=== PATIENT | female | born 1960 | race Caucasian/White ===

== ENCOUNTER 2020-03-22 15:19 | Inpatient (IN) | payer MEDICARE, MEDICAID ==
[~2020-03-22] VITALS: Ht 152.4 cm; Wt 142.0 kg
[2020-03-22] MEDS ORDERED: ACETAMINOPHEN 500 MG TAB PO ONE (15:45)
[2020-03-22 16:13] LABS: Platelet Count (auto) 247 10^3/uL (140-450)
[2020-03-22 16:15] LABS: Hematocrit 41.8 % (36.0-46.0); Hemoglobin 13.1 g/dL (12.2-16.2); Mean Corpuscular Hemoglobin 25.7 pg (28.0-32.0); Mean Corpuscular Hgb Conc. 31.2 g/dL (32.0-36.0); Mean Corpuscular Volume 82.3 fL (80.0-100.0); Red Blood Cells 5.08 10^6/uL (4.0-5.20); Red Cell Distribution Width 17.5 % (11.8-14.3); White Blood Cell 9.6 10^3/uL (4.4-10.8)
[2020-03-22 16:33] LABS: Albumin 2.9 g/dL (3.4-5.0); Anion Gap 8 (5-15); Blood Urea Nitrogen 5 mg/dL (7-18); Carbon Dioxide 33 mmol/L (21-32); Chloride 97 mmol/L (98-107); Glucose 97 mg/dL (74-106); Sodium 138 mmol/L (136-145)
[2020-03-22 16:38] LABS: Basophils % (manual) 0 (0.0-2.0); Blast Cells 0; Metamyelocytes % 0; Myelocytes % 0; Promyelocytes % 0; Reactive Lymphocytes 0
[2020-03-22 16:39] LABS: Alanine Aminotransferase 22 U/L (13-56); Alkaline Phosphatase 69 U/L (45-117); Aspartate Aminotransferase 31 U/L (15-37); BUN/Creatinine Ratio 7.2; Bilirubin, Total 1.9 mg/dL (0.2-1.0); Calcium 8.1 mg/dL (8.5-10.1); GFR African American 112 mL/min; GFR Non-African American 93 mL/min; Total Protein 6.3 g/dL (6.4-8.2)
[2020-03-22 16:56] LABS: Band Neutrophils % (manual) 4; Eosinophils % (manual) 4 (0-7); Lymphocytes % (manual) 30 (10.0-50.0); Monocytes % (manual) 5 (0-12)
[2020-03-22 16:57] LABS: Potassium 2.7 mmol/L (3.5-5.1)
[2020-03-22] MEDS ORDERED: POTASSIUM EFFERVESENT TAB 25 MEQ PO ONE (18:00)
[2020-03-22] MEDS: POTASSIUM CHL 20MEQ/100ML 100 ML IV SCH ×2 (18:30→20:47)
[2020-03-22] MEDS ORDERED: ALBUTEROL SULF 2.5 MG/0.5ML(0.5%) NEB SOLN NEB ONE (19:15)
[2020-03-22] MEDS ORDERED: IPRATROPIUM BROM 0.5 MG/2.5ML INH SOL NEB ONE (19:15)
[2020-03-22] MEDS: SODIUM CHLORIDE 0.9% 1,000 ML IV SCH (21:11)
[2020-03-22] MEDS ORDERED: SODIUM CHLORIDE 0.9% 1,000 ML IV ONE (21:15)
[2020-03-22] MEDS ORDERED: DOCUSATE SOD 100 MG CAP PO PRN (21:15)
[2020-03-22] MEDS ORDERED: ONDANSETRON HCL 4 MG/2 ML VIAL IV PRN (21:15)
[2020-03-22] MEDS ORDERED: ACETAMINOPHEN 325 MG TAB PO PRN (21:15)
[2020-03-22] MEDS ORDERED: TEMAZEPAM 15 MG CAP PO PRN (21:15)
[2020-03-22] MEDS ORDERED: MORPHINE SULF INJ 2 MG/ML SYRINGE 1ML IV PRN (21:15)
[2020-03-22] MEDS ORDERED: DEXTROSE (50%) 50ML SYRG IV PRN (21:15)
[2020-03-22] MEDS ORDERED: HYDROcodone-ACET 5/325MG TAB PO PRN (21:15)
--- NOTE | 2020-03-22 23:00 | NUR ---
MS admit from ER RORO SEGURA admitted to tele/MS. Patient oriented to NAVIN JOSHI, nay RN, unit, room, bed, and unit policies regarding patient care and visiting hours. Patient weighed by bed scale and encouraged to call if they need something. All questions and concerns addressed, patient verbalized understanding. Note:Patient admitted with finley catheter in place.
[2020-03-22] MEDS: methylPREDNISolone SOD SUCC 125 MG/2 ML VL IV SCH (23:01)
[2020-03-22] MEDS: InsuLIN REG 1unit/0.01ml Soln (100units/ml) SC SCH (23:02)
[2020-03-22] MEDS: ACCU-CHEK COMFORT CURVE STRIP VI SCH (23:03)
[2020-03-22 23:18] VITALS: BP 117/79
[2020-03-23 02:56] LABS: Urine Bacteria FEW /hpf (None Seen); Urine Blood Negative /uL (Negative); Urine Specific Gravity 1.002 (1.001-1.035); Urine WBC 2 /hpf (0 - 5)
[2020-03-23 05:00] VITALS: BP 129/69
[2020-03-23] MEDS: ACCU-CHEK COMFORT CURVE STRIP VI SCH ×4 (06:04→21:31)
[2020-03-23] MEDS: InsuLIN REG 1unit/0.01ml Soln (100units/ml) SC SCH ×5 (06:07→21:37)
--- NOTE | 2020-03-23 06:51 | NUR ---
Patient said she had diarrhea at home and again in ED, patient is asking for medication to stop diarrhea. Called Hospitalist, Dr. Bettencourt said if you see patient having diarrhea to let him know. No new orders at this time. Patient had no episode of diarrhea since coming to floor. Patient questioning blood sugar check and insulin when she is not diabetic, informed patient she is on solumedrol that would affect her blood sugar. Informed patient she can refuse treatment if she does not want it, patient said "do what you have to do".
--- NOTE | 2020-03-23 07:30 | NUR ---
Opening Note Assumed pt care from NOC RN. Pt is a/ox4 with no s/s of distress or SOB. Pt is currently laying in bed with no complaints at this time. Pt is currently on 3L via NC. Discussed POC with pt; pt verbalized understanding. Safety measures maintained with call light within reach, bed in lowest position and side rails up. Will continue to monitor for changes.
[2020-03-23] MEDS: methylPREDNISolone SOD SUCC 125 MG/2 ML VL IV SCH (08:59)
[2020-03-23 09:00] VITALS: BP 106/57
[2020-03-23 10:30] LABS: BUN/Creatinine Ratio 8.2; Calcium 7.5 mg/dL (8.5-10.1); Potassium 3.9 mmol/L (3.5-5.1)
--- NOTE | 2020-03-23 11:19 | NUR ---
Attempted PT eval. Pt refused stating she is too tired. Will attempt again later.
--- NOTE | 2020-03-23 11:52 | NUR ---
Pt Refusing Insulin Pt states "I am not a diabetic, leave me alone". Provided pt with education, pt still refused. Will continue to monitor.
--- NOTE | 2020-03-23 12:29 | NUR ---
Dr Walls at bedside MD to see pt. Discussed POC. Requested that COVID test be done to r/o. also requested that we resume home medications. Will implement.
--- NOTE | 2020-03-23 12:53 | NUR ---
Missing Medications Pt states that while she was in the ED, she had a bag of her current medications. She does not have the bag currently with he, stating "they took it down in the ED". There is no documentation of where said medications are. Called pharmacy, they do not have the said bag. Called ED, tech stated that she does not have a bag, but she would keep an eye out for it. Will continue to attempt to locate. Addendum: 03/23/20 at 1527 by DEDE MORALES RN RN Called back ED. They stated that they would look for the medications. Will continue to attempt to locate. Addendum: 03/23/20 at 1559 by DEDE MORALES RN RN Called [facility]. They have a list of medications from 8 months ago. Will continue to attempt to obtain. Addendum: 03/23/20 at 1609 by DEDE MORALES RN RN Called ED again. Staff stated they have looked, unable to locate medications.
[2020-03-23] MEDS ORDERED: DEXTROSE (50%) 50ML SYRG IV PRN (13:00)
[2020-03-23] MEDS: SODIUM CHLORIDE 0.9% 1,000 ML IV SCH (13:00)
--- NOTE | 2020-03-23 13:14 | NUR ---
COVID Test Specimen taken and walked to lab. Will continue to monitor.
--- NOTE | 2020-03-23 13:34 | NUR ---
UA SENT TO LAB
[2020-03-23 14:34] VITALS: BP 124/75
--- NOTE | 2020-03-23 14:50 | NUR ---
2nd attempt made for PT eval. Pt refusing stating she cannot get up. Pt was educated on importance of getting out of bed. Will attempt again later.
--- NOTE | 2020-03-23 15:02 | NUR ---
Attempted to Obtain Home Medications Called [facility], to which she was discharged from to obtain list of home medications, . Spoke to Jjoo at facility, she stated that because it is the weekend, she does not have access to medical records, therefore cannot provide a list of medications pt was d/c'e with. Staff member further stated that we could call tomorrow in an attempt to obtain list. Will continue to attempt to obtain list. Addendum: 03/23/20 at 1631 by DEDE MORALES RN RN Attempted to call pt's home phone to speak with pt's roommate to obtain list of medications. Attempted number provided [phone], dial tone was reached.
--- NOTE | 2020-03-23 15:07 | NUR ---
Spoke with Pt's Contact, Brother, Rigo Spoke with pt's next of Kin, Rigo, , in an attempt to obtain home medications for pt. Rigo, living in [place], is unaware of pt's current home medications. Will continue to attempt to get home medications.
[2020-03-23] MEDS: ALBUTEROL SULF 2.5 MG/0.5ML(0.5%) NEB SOLN NEB PRN ×2 (15:35→22:29)
[2020-03-23] MEDS: IPRATROPIUM BROM 0.5 MG/2.5ML INH SOL NEB PRN ×2 (15:35→22:29)
[2020-03-23 16:06] LABS: Basophils # (auto) 0 10 ^3/uL (0-0.2); Eosinophils # (auto) 0 10 ^3/uL (0-0.8); Hemoglobin 12.4 g/dL (12.2-16.2); Monocytes # (auto) 0.1 10 ^3/uL (0-1.3)
[2020-03-23 16:09] LABS: Basophils % (auto) 0.1 % (0.0-2.0); Hematocrit 39.6 % (36.0-46.0); Lymphocytes # (auto) 0.7 10 ^3/uL (0.4-5.4); Lymphocytes % (auto) 8.6 % (10.0-50.0); Mean Corpuscular Hemoglobin 26.3 pg (28.0-32.0); Mean Corpuscular Hgb Conc. 31.2 g/dL (32.0-36.0); Mean Corpuscular Volume 84.2 fL (80.0-100.0); Monocytes % (auto) 0.7 % (0.0-12.0); Neutrophils # (auto) 7.3 10 ^3/uL (1.6-8.6); Neutrophils % (auto) 90.6 % (37.0-80.0); Nucleated Red Blood Cells % 0.4 %; Platelet Count (auto) 173 10^3/uL (140-450); Red Cell Distribution Width 17.5 % (11.8-14.3); White Blood Cell 8.1 10^3/uL (4.4-10.8)
[2020-03-23 16:16] LABS: Calcium 7.4 mg/dL (8.5-10.1); Potassium 3.7 mmol/L (3.5-5.1)
[2020-03-23 16:19] LABS: BUN/Creatinine Ratio 7.1
[2020-03-23 17:00] VITALS: BP 111/52
[2020-03-23 17:29] VITALS: BP 111/52
--- NOTE | 2020-03-23 17:55 | NUR ---
Pt C/O Eye Drainage Pt states that she is experiencing some eye drainage to her R eye. Pt states that it has been going on for a couple days and further states that it is due to an "allergic reaction". Provided pt with tissues to wipe eye. At this time, pt's eye shows no abnormalities or redness, mild clear drainage noted to pt's R eye. Will continue to monitor.
--- NOTE | 2020-03-23 21:15 | NUR ---
CALLED ED TO FIND OUT IF PATIENT'S BAG OF MEDICATION WERE FOUND, PER EXCHANGE SPECIALIST, NONE WERE FOUND RIGHT NOW BUT SHE WILL KEEP LOOKING. PATIENT IS WORRIED THAT SHE HAS BEEN MISSING HER MEDICATIONS SINCE WE CANNOT VERIFY HER HOME MEDICATIONS. PATIENT REMEMBERS SHE TAKES PREDNISONE 7.5MG, DESMOPRESSIN 2MG, LEVOTHYROXINE 81MCG, LIPITOR 40MG BUT CANNOT REMEMBER HER HEART MEDICATIONS.
[2020-03-23] MEDS ORDERED: cefTRIAXone 1GM/50ML D5W 50 ML IV ONE (21:21)
[2020-03-23] MEDS: cefTRIAXone 1GM/50ML D5W 50 ML IV SCH (21:23)
[2020-03-23 22:00] VITALS: BP 117/73
[2020-03-23] MEDS ORDERED: FUROSEMIDE 20 MG TAB PO ONE (23:45)
--- NOTE | 2020-03-24 00:22 | NUR ---
NOTIFIED MACHINE HAND, ALISHA REGARDING PATIENT'S MISSING BAG OF MEDICATIONS. PER HOUSE SUP., HE LOOKED ALL OVER DOWN IN THE ED AND THERE WAS NONE FOUND.
--- NOTE | 2020-03-24 00:24 | NUR ---
SPOKE WITH HOSPITALIST REGARDING PATIENT'S HOME MEDICATIONS, NOTIFIED HOSPITALIST REGARDING HOME MEDICATIONS THAT THE PATIENT REMEMBERS. TELEPHONE ORDERS OBTAINED FOR THE FOLLOWING MEDICATIONS THAT THE PATIENT REMEMBERS: LIPITOR 40MG QHS, LEVOTHYROXINE 88MCG PO DAILY, DESMOPRESSIN 0.2MG PO BID, DILTIAZEM 60 MG DAILY (PER PT, SHE TAKES IT TWICE A DAY). LASIX 20 MG PO X 1 WAS ORDERED FOR INCREASING LEG EDEMA. MORNING NURSE WILL NEED TO CALL [facility] TO REQUEST FOR A LIST OF PATIENT'S HOME MEDICATION TO RECONCILE PT'S MEDICATION. WILL ENDORSE TO MORNING RN.
[2020-03-24 05:00] VITALS: BP 115/77
[2020-03-24] MEDS: ACCU-CHEK COMFORT CURVE STRIP VI SCH ×4 (06:10→21:14)
[2020-03-24] MEDS: LEVOTHYROXINE SODIUM 88 MCG TAB PO SCH (06:10)
[2020-03-24] MEDS: InsuLIN REG 1unit/0.01ml Soln (100units/ml) SC SCH ×4 (06:10→21:19)
[2020-03-24] MEDS: SODIUM CHLORIDE 0.9% 1,000 ML IV SCH ×2 (06:11→23:11)
--- NOTE | 2020-03-24 06:40 | NUR ---
SPOKE TO PHARMACIST, DESMOPRESSIN IS ONLY AVAILABLE NASAL SPRAY OR INJECTION IN THE HOSPITAL. PAGED HOSPITALIST TO CHANGE ORDER. WAITING FOR CALL BACK.
--- NOTE | 2020-03-24 07:01 | NUR ---
SPOKE TO DR. PAIGE, TEL ORDER OBTAINED FOR DESMOPRESSIN NASAL SPRAY, 1 SPRAY BID.
--- NOTE | 2020-03-24 07:05 | NUR ---
PT ASSESSED FOR PRN HHN TX. PT IS ON 4LNC, SPO2 98%, HR 100, RR 20. NO S/S OF RESPIRATORY DISTRESS. HHN TX NOT INDICATED AT THIS TIME. WILL CONTINUE TO MONITOR.
--- NOTE | 2020-03-24 07:06 | NUR ---
OPENING SHIFT NOTE Assumed care of patient from shift foreman RN. Patient is alert and oriented x4, patient denies pain, respirations are even and unlabored. Patient is receiving oxygen at 4L via nasal cannula, saturation 93%. Patient was updated on the plan of care and verbalized understanding. Patient began yelling statins "the shift foreman nurse was supposed to give me my heart medications and she was supposed to fix my would dressing". I informed the patient that the shift foreman was no longer here and when her medications were due. Patient was asked to stop yelling. Patient stated "I do not understand why the medications are due at that time that is not when I take them." I educated the patient on hospital policy and that the medications are due then pharmacy has them due and when the doctors order them. Patient continues to state frustration. 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 I want to see my doctor right now." Patient was educated that when the doctors make rounds and that is when she will be able to see the MD. Patient states that she "will not move or do physical therapy until all of her medications are properly ordered." Will attempt to call [facility] to obtain accurate medication reconciliation. Bed is locked, in the lowest position, side rails up x2 and call light is in reach. Patient was encouraged to call for assistance as needed. Charge nurse Lisa informed of patient complaints.
--- NOTE | 2020-03-24 08:40 | NUR ---
DRESSING CHANGE ON LEFT UPPER CHEST WOULD Wound bed is pink, no drainage noted, Patient states that there is an ointment that her home nurse was applying to the wound, there is currently no order for ointment. Optifoam and Medipore tape applied to wound. Patient tolerated well.
[2020-03-24] MEDS ORDERED: dilTIAZem HCL 60 MG TAB PO ONE (10:00)
[2020-03-24] MEDS ORDERED: DESMOPRESSIN ACET 0.01% 5ML NASAL SPRY SCH (10:00)
[2020-03-24] MEDS: cefTRIAXone 1GM/50ML D5W 50 ML IV SCH (10:05)
[2020-03-24] MEDS: predniSONE 5 MG TAB PO SCH (10:06)
[2020-03-24] MEDS: DESMOPRESSIN ACET 0.01% 5ML NASAL SPRY SCH ×2 (10:08→21:13)
--- NOTE | 2020-03-24 10:17 | NUR ---
Attempted PT eval. Pt refused stating she does not want to get up until she received meclizine. Will attempt again later.
--- NOTE | 2020-03-24 11:24 | NUR ---
03/24/20 1124 FYI this patient was previously receiving care from [facility] [phone], fax number [phone].
--- NOTE | 2020-03-24 12:28 | NUR ---
LOZANO AT BEDSIDE Updated on patient status. Plan of care was reviewed with patient , patient verbalized understanding. Per MD patient may be discharged tomorrow.
[2020-03-24 13:00] VITALS: BP 124/70
--- NOTE | 2020-03-24 16:50 | NUR ---
Patient complaining of vertigo Called [facility], updated on patient status, New order for Meclizine 25mg PO TID.
[2020-03-24 17:03] VITALS: BP 114/58
[2020-03-24] MEDS ORDERED: PANT1INJ3 PO (18:28)
[2020-03-24] MEDS ORDERED: ATO40T PO (18:28)
[2020-03-24] MEDS ORDERED: DIL60T PO (18:28)
[2020-03-24] MEDS ORDERED: DESM1SPR (18:28)
[2020-03-24] MEDS ORDERED: ACET-1156 PO (18:28)
[2020-03-24] MEDS ORDERED: PRED2.5T4 PO (18:28)
[2020-03-24] MEDS ORDERED: LEVO150T10 PO (18:28)
[2020-03-24] MEDS ORDERED: DOCU100T15 PO (18:28)
--- NOTE | 2020-03-24 18:29 | NUR ---
MED REC COMPLETED Patient's medication rec faxed from [facility].
[2020-03-24] MEDS: MECLIZINE HCL 25 MG TAB PO SCH (21:13)
[2020-03-24 22:00] VITALS: BP 115/76
[2020-03-24] MEDS ORDERED: ATORVASTATIN 20 MG TAB PO SCH (22:00)
--- NOTE | 2020-03-24 22:39 | NUR ---
Respiratory note: PT SEEN AND ASSESSED FOR PRN MED NEB TX AT 2239. TX IS NOT INDICATED AT THIS, PT DENIES ANY SHORTNESS OF BREATH AT THIS TIME. HR 90 RR 18 SP02 98% ON 4L NASAL CANNULA.
[2020-03-25 05:00] VITALS: BP_SYST 115; BP_SYST 123; BP_DIAS 64; BP_DIAS 70
[2020-03-25] MEDS: InsuLIN REG 1unit/0.01ml Soln (100units/ml) SC SCH ×3 (06:16→17:00)
[2020-03-25] MEDS: MECLIZINE HCL 25 MG TAB PO SCH ×2 (06:16→15:49)
[2020-03-25] MEDS: ACCU-CHEK COMFORT CURVE STRIP VI SCH ×3 (06:17→17:28)
[2020-03-25] MEDS: LEVOTHYROXINE SODIUM 88 MCG TAB PO SCH (06:17)
--- NOTE | 2020-03-25 08:00 | NUR ---
RECEIVED PATIENT ALERT AND ORIENTED X4, NOT IN DISTRESS, CLEAR LUNG SOUNDS IN BILATERAL AND DIMINISHED IN BILATERAL LOWER LUNG LOBES, RR=18 SAT=95%, DEEP BREATHING AND COUGHING ENCOURAGED, VERBALIZED AND DEMONSTRATED WELL, HEART R=74, DENIED SOB AND CHEST PAIN AT THIS MOMENT, ABDOMEN SOFT WITH ACTIVE BS, TOLERATED BREAKFAST TRAY WELL, LAST MB=03/21/20 REPORTED, AMOS CATH IN PLACE AND PATENT, DRAINING CLEAR YELLOW URINE, SKIN INTACT WARM TO TOUCH, RADIAL AND PEDAL PULSES PALPABLE, CAP REFILL <3 SECONDS, RESTING ON BED, DENIED PAIN, HEAD OF BED ELEVATED, BED ON LOW POSITION, RAILS UP X2, CALL LIGHT ON REACH,WILL CONTINUE MONITORING.
--- NOTE | 2020-03-25 08:11 | NUR ---
Respiratory note: HR 90 RR 18 SP02 98% ON 4L NC. NO SIGNS OR SYMPTOMS OF SOB. PRN MED NEB TX NOT INDICATED AT THIS TIME. PT WANTS TO SLEEP.
[2020-03-25 08:57] VITALS: BP 118/67
--- NOTE | 2020-03-25 09:33 | NUR ---
Attempted PT eval. Pt states she does not want to get up until she has her next dose of meclizine. Will attempt again.
--- NOTE | 2020-03-25 09:49 | NUR ---
Assessment Patient is a 60-year-old female who is alert and oriented. Prior to admission patient lived home with her roommate and functioned independently. Patient informed me she has a nebulizer, oxygen, shower chair, walker, bed side commode and a hospital bed. Per patient she will return home to her prior living arrangements post discharge and family will transport her home. Advised patient there is a social service consult for home health safety evaluation and broken hospital bed. Patient informed me her hospital bed broke and she needs a new one stating the company name who provided her with the bed is [employer]. Informed patient I will contact [employer] to have them replace the bed for a new one. Patient informed me she is on service with [facility]. Informed patient clinical information will be faxed to agency. Informed patient she has the right to participate in all discharge planning. Patient verbalized understanding and agreed to discharge plans. Per Melinda with [employer] Ph:( [phone]) they will resume service for patient. Contact [employer], arcelia to Amy regarding broken hospital bed. Per Amy with [employer] they will contact patient to replace broken hospital bed. Addendum: 03/25/20 at 0950 by JESSICA COOPER Amended: Links added.
[2020-03-25] MEDS: DESMOPRESSIN ACET 0.01% 5ML NASAL SPRY SCH (10:00)
--- NOTE | 2020-03-25 10:00 | NUR ---
C/O MEDICATION LOST IN ER, ER AND PHARMACY CONTACTED FOR FOLLOW UP AND UPDATES, ER AND PHARMACY DENIED ANY TRACE OF THE MEDICATIONS, KEY ACCOUNT REPRESENTATIVE RHONDA WAS NOTIFIED, PATIENT WAS UPDATED OF LOST MEDICATION FOLLOW UP, WILL CONTINUE MONITORING.
[2020-03-25] MEDS: cefTRIAXone 1GM/50ML D5W 50 ML IV SCH (10:47)
[2020-03-25] MEDS: predniSONE 5 MG TAB PO SCH (10:48)
--- NOTE | 2020-03-25 12:00 | NUR ---
PENDING D/C, DR. MAURICIO KAN WAS CONTACTED FOR D/C MEDICATION CLARIFICATIONS AND LOST MEDICATION PRESCRIPTION REQUESTED BY THE PATIENT, DR. MARTÍNEZ WILL COME TO COMMUNICATE WITH THE PATIENT REPORTED, WAITING FOR DR. MAURICIO Wayne TO SEE THE PATIENT FOR MORE D/C AND MEDICATION CLARIFICATION.
[2020-03-25 12:38] VITALS: BP 120/56
[2020-03-25] MEDS: SODIUM CHLORIDE 0.9% 1,000 ML IV SCH (15:49)
[2020-03-25 16:02] VITALS: BP 120/60
[2020-03-25 16:58] VITALS: BP 103/63
--- NOTE | 2020-03-25 17:14 | NUR ---
BRIAN Ramirez advised me patient family is unable to transport patient stating she will need transportation to be arranged. Informed BRIAN Ramirez transportation will be arranged for 18:00 via [employer]. Faxed transportation form request to [facility] requesting for a 18:00 parts picker time via [employer]. Per Milena with [facility] transportation has been arranged with [employer] ) via [employer] between 18:00-20:00.
--- NOTE | 2020-03-25 18:50 | NUR ---
D/C INSTRUCTIONS AND FOLLOW UP EDUCATION PROVIDED, VERBALIZED UNDERSTANDING, D/C AMOS CAT AND IV SITE, TOLERATED WELL, WILL CALL PCP FROM HOME FOR MEDICATION FOLLOW UP REPORTED, VS T=98.2 RR=20 SAT=96% P=84 FQ=754/76, NOT IN DISTRESS, DENIED PAIN, D/C ON GURNEY, TOOK ALL BELONGINGS AND LEFT NOTHING BEHIND.
== END 2020-03-25 18:50 | disposition home health service (06) | DRG 191 ==
LOC: EDBD 15:19 → ER 15:19 → OVERFLOW 15:20 → WEST WING 22:21
PROVIDERS: ADMIT Hospitalist; ATTEND Family Medicine
DX: J44.1 Chronic obstructive pulmonary disease with (acute) exacerbation (principal); N39.0 Urinary tract infection, site not specified; Z68.43 Body mass index [BMI] 50.0-59.9, adult; E87.6 Hypokalemia; D35.2 Benign neoplasm of pituitary gland; E66.01 Morbid (severe) obesity due to excess calories; Z20.828 Contact with and (suspected) exposure to other viral communicable diseases; I10 Essential (primary) hypertension; I48.91 Unspecified atrial fibrillation; E11.9 Type 2 diabetes mellitus without complications; E03.9 Hypothyroidism, unspecified; E78.5 Hyperlipidemia, unspecified; Z90.49 Acquired absence of other specified parts of digestive tract; Z88.8 Allergy status to other drugs, medicaments and biological substances
CPT/HCPCS: 36415; 71045; 80048; 80053; 80061; 81001; 82962; 83036; 83880; 84443; 84484; 85007; 85025; 85027; 87040; 87086; 87088; 87186; 93005; 94640; 96365; 96366; G0378; J0696; J1815; J2405; J3480